=== PATIENT | male | born 1950 | race Caucasian/White ===

== ENCOUNTER 2023-01-26 02:49 | Inpatient (IN) | payer OTHER, MEDICARE, BC ==
[2023-01-26] MEDS ORDERED: Albuterol/Ipratropium 3.0-0.5 MG/3 ML Neb Soln NEB ONE (02:57)
[2023-01-26] MEDS ORDERED: Sodium Chloride 0.9% 1,000 ML IV SCH (03:15)
[2023-01-26 03:18] LABS: BASOPHILS ABSOLUTE AUTO 0.02 10^3/uL (0.00-0.50); BASOPHILS PERCENT AUTO 0.2 % (0-1); EOSINOPHILS ABSOLUTE AUTO 0.01 10^3/uL (0.00-1.50); EOSINOPHILS PERCENT AUTO 0.1 % (0-6); HEMATOCRIT 47.6 % (42.0-52.0); IMMATURE GRAN ABSOLUTE AUTO 0.01 10^3/uL (0.00-0.49); IMMATURE GRAN PERCENT AUTO 0.1 % (0.0-4.9); LYMPHOCYTES ABSOLUTE AUTO 0.46 10^3/uL (0.60-5.00); LYMPHOCYTES PERCENT AUTO 3.9 % (24-44); MEAN CORPUSCULAR HEMOGLOBIN 31.7 pg (27.0-32.0); MEAN CORPUSCULAR HGB CONC 33.6 g/dL (32.0-36.0); MEAN CORPUSCULAR VOLUME 94.4 fL (83.0-97.0); MONOCYTES ABSOLUTE AUTO 0.72 10^3/uL (0.00-1.50); MONOCYTES PERCENT AUTO 6.1 % (0-10); NEUTROPHILS ABSOLUTE AUTO 10.51 x10^3/uL (1.80-8.00); NEUTROPHILS PERCENT AUTO 89.6 % (41-71); PLATELET COUNT,PLT 319 10^3/uL (150-400); RED BLOOD CELL COUNT 5.04 x10^6/uL (4.50-6.00); WHITE BLOOD CELL COUNT,WBC 11.7 10^3/uL (4.0-11.0)
[2023-01-26 03:36] LABS: ALANINE AMINOTRANSFERASE,ALT 28 U/L (12-78); ALBUMIN 3.9 g/dL (3.4-5.0); ALKALINE PHOSPHATASE 99 U/L (46-116); ASPARTATE AMNIOTRANSFERASE,AST 18 U/L (15-37); BILIRUBIN TOTAL 0.6 mg/dL (0.0-1.0); BLOOD UREA NITROGEN,BUN 13 mg/dL (7-18); CALCIUM 8.9 mg/dL (8.4-10.1); CARBON DIOXIDE,CO2 25 mmol/L (21-32); CHLORIDE,CL 102 mEq/L (98-106); CREATININE 0.9 mg/dL (0.7-1.3); GLUCOSE RANDOM 108 mg/dL (75-99); MAGNESIUM 1.8 mg/dL (1.8-2.4); POTASSIUM,K 4.3 mEq/L (3.5-5.0); PROTEIN TOTAL,TP 7.6 g/dL (6.4-8.2); SODIUM,NA 139 mEq/L (136-145)
[2023-01-26 03:38] LABS: APPEARANCE,URINE CLEAR (CLEAR); BILIRUBIN,URINE NEGATIVE (NEGATIVE); COLOR,URINE YELLOW (YELLOW); GLUCOSE,URINE NEGATIVE (NEGATIVE); KETONES,URINE NEGATIVE (NEGATIVE); LEUKOCYTE ESTERASE,URINE NEGATIVE (NEGATIVE); NITRITE,URINE NEGATIVE (NEGATIVE); UROBILINOGEN,URINE 0.2 EU/dL (0.2-1.0)
[2023-01-26 03:40] LABS: AMPHETAMINES,URINE POSITIVE (NEGATIVE); OXYCODONE,URINE NEGATIVE (NEGATIVE)
[2023-01-26 03:41] LABS: BARBITURATES,URINE NEGATIVE (NEGATIVE); BENZODIAZEPINE,URINE NEGATIVE (NEGATIVE); MDMA (ECSTASY), URINE NEGATIVE (NEGATIVE); METHADONE,URINE NEGATIVE (NEGATIVE); METHAMPHETAMINES,URINE POSITIVE (NEGATIVE); OPIATES,URINE NEGATIVE (NEGATIVE); PHENCYCLIDINE,URINE NEGATIVE (NEGATIVE); TCA,URINE NEGATIVE (NEGATIVE)
[2023-01-26] MEDS ORDERED: Acetaminophen 325 MG Tab PO ONE (03:41)
[2023-01-26] MEDS ORDERED: Sodium Chloride 0.9% 1,000 ML IV STA (03:42)
[2023-01-26 03:43] LABS: ESTIMATED GFR 91 mL/min (>=60)
[2023-01-26 03:44] LABS: ETHANOL BLOOD MEDICAL < 3 mg/dL (0-3)
[2023-01-26] MEDS: methylPREDNISolone Sodium Succinate 40 MG/1 ML SDV IVPUSH SCH ×2 (04:23→15:11)
[2023-01-26] MEDS: cefTRIAXone 1 GM Vial IVPUSH SCH (04:26)
[2023-01-26] MEDS: Azithromycin 500 MG in Sodium Chloride 0.9% 250 ML IV SCH (04:32)
[2023-01-26] MEDS ORDERED: Ondansetron 4 MG Tab.DIS PO PRN (05:35)
[2023-01-26] MEDS ORDERED: Polyethylene Glycol 3350 Powder 17 GM Packet PO PRN (05:35)
[2023-01-26] MEDS ORDERED: Ondansetron 4 MG/2 ML SDV IV PRN (05:35)
[2023-01-26] MEDS ORDERED: Acetaminophen 325 MG Tab PO PRN (05:35)
[2023-01-26] MEDS ORDERED: Docusate Sodium 100 MG Cap PO PRN (05:35)
[2023-01-26] MEDS ORDERED: Albuterol/Ipratropium 3.0-0.5 MG/3 ML Neb Soln NEB PRN (05:35)
[2023-01-26] MEDS: Sodium Chloride 0.9% 1,000 ML IV SCH ×2 (05:38→15:28)
[2023-01-26 07:47] LABS: OCCULT BLOOD,URINE SMALL (NEGATIVE); PROTEIN,URINE NEGATIVE (NEGATIVE)
[2023-01-26 07:49] LABS: RBC,URINE 0-5 /HPF (0-5); WBC,URINE NOT SEEN /HPF (0-5)
[2023-01-26 07:50] LABS: BACTERIA,URINE NOT SEEN /HPF (NOT SEEN); EPITHELIAL CELLS,URINE NOT SEEN /HPF (NOT SEEN); MUCUS,URINE OCCASIONAL /HPF (NOT SEEN)
[2023-01-26] MEDS: Albuterol/Ipratropium 3.0-0.5 MG/3 ML Neb Soln NEB SCH ×3 (08:15→19:54)
[2023-01-26] MEDS: Nicotine 21 MG/24 Hr Patch TRDERM SCH (08:15)
[2023-01-26] MEDS: Metoprolol Succinate 25 MG Tab.ER PO SCH (11:44)
[2023-01-26] MEDS ORDERED: methylPREDNISolone Sodium Succinate 40 MG/1 ML SDV ONE (15:10)
[2023-01-26] MEDS: Apixaban 5 MG Tab PO SCH (19:54)
[2023-01-26] MEDS ORDERED: atorvaSTATin 20 MG Tab PO SCH (20:00)
[2023-01-27] MEDS: Sodium Chloride 0.9% 1,000 ML IV SCH (00:28)
[2023-01-27] MEDS: methylPREDNISolone Sodium Succinate 40 MG/1 ML SDV IVPUSH SCH (04:41)
[2023-01-27] MEDS ORDERED: methylPREDNISolone Sodium Succinate 40 MG/1 ML SDV IVPUSH SCH (05:00)
[2023-01-27] MEDS ORDERED: cefTRIAXone 1 GM Vial IVPUSH SCH (05:00)
[2023-01-27] MEDS ORDERED: Azithromycin 500 MG in Sodium Chloride 0.9% 250 ML IV SCH (05:00)
[2023-01-27] MEDS: cefTRIAXone 1 GM Vial IVPUSH SCH (06:27)
[2023-01-27] MEDS: Azithromycin 500 MG in Sodium Chloride 0.9% 250 ML IV SCH (06:27)
[2023-01-27 07:28] LABS: BASOPHILS ABSOLUTE AUTO 0.01 10^3/uL (0.00-0.50); BASOPHILS PERCENT AUTO 0.1 % (0-1); HEMATOCRIT 39.2 % (42.0-52.0); IMMATURE GRAN ABSOLUTE AUTO 0.09 10^3/uL (0.00-0.49); IMMATURE GRAN PERCENT AUTO 0.6 % (0.0-4.9); LYMPHOCYTES ABSOLUTE AUTO 0.74 10^3/uL (0.60-5.00); LYMPHOCYTES PERCENT AUTO 4.8 % (24-44); MEAN CORPUSCULAR HEMOGLOBIN 31.9 pg (27.0-32.0); MEAN CORPUSCULAR HGB CONC 33.2 g/dL (32.0-36.0); MEAN CORPUSCULAR VOLUME 96.1 fL (83.0-97.0); MONOCYTES ABSOLUTE AUTO 0.76 10^3/uL (0.00-1.50); MONOCYTES PERCENT AUTO 4.9 % (0-10); NEUTROPHILS ABSOLUTE AUTO 13.89 x10^3/uL (1.80-8.00); NEUTROPHILS PERCENT AUTO 89.6 % (41-71); PLATELET COUNT,PLT 256 10^3/uL (150-400); RED BLOOD CELL COUNT 4.08 x10^6/uL (4.50-6.00); WHITE BLOOD CELL COUNT,WBC 15.5 10^3/uL (4.0-11.0)
[2023-01-27] MEDS: Albuterol/Ipratropium 3.0-0.5 MG/3 ML Neb Soln NEB SCH ×2 (07:38→14:32)
[2023-01-27] MEDS: Nicotine 21 MG/24 Hr Patch TRDERM SCH (07:38)
[2023-01-27] MEDS: Metoprolol Succinate 25 MG Tab.ER PO SCH (07:38)
[2023-01-27] MEDS: Apixaban 5 MG Tab PO SCH (07:39)
[2023-01-27 08:01] LABS: CALCIUM 8.7 mg/dL (8.4-10.1); CREATININE 0.7 mg/dL (0.7-1.3); EST CRCL DRUG DOSING (CG) 96.79 mL/min; POTASSIUM,K 5.2 mEq/L (3.5-5.0)
[2023-01-27] MEDS ORDERED: Azithromycin 500 MG in Sodium Chloride 0.9% 250 ML IV ONE (15:00)
[2023-01-27] MEDS ORDERED: cefTRIAXone 1 GM Vial IVPUSH ONE (15:00)
== END 2023-01-27 17:00 | disposition home or self-care (01) | DRG 195 ==
LOC: CC.ED 02:49 → CC.MS 03:58
PROVIDERS: ADMIT Nurse Practitioner; ATTEND Nurse Practitioner
DX: J18.9 Pneumonia, unspecified organism (principal); R09.02 Hypoxemia; Z20.822 Contact with and (suspected) exposure to COVID-19; D72.829 Elevated white blood cell count, unspecified; T38.0X5A Adverse effect of glucocorticoids and synthetic analogues, initial encounter; F15.90 Other stimulant use, unspecified, uncomplicated; E78.5 Hyperlipidemia, unspecified; R42 Dizziness and giddiness; I48.91 Unspecified atrial fibrillation; Z79.01 Long term (current) use of anticoagulants; Z79.899 Other long term (current) drug therapy
CPT/HCPCS: 36415; 71045; 80048; 80053; 80305-QW; 80307; 81001; 83605; 83735; 84484; 85025; 87040; 93005; 93010; 94640; 97161-GP; 97530-GP; 99223; 99239; 99285; A9270-GY; J0456; J0696; J2920; J7030; J7050; J7620-GY; U0002